=== PATIENT | male | born 1950 | race Caucasian/White ===

== ENCOUNTER 2016-06-29 05:22 | Day surgery (SDC) | payer OTHER, BC ==
[~2016-06-29] VITALS: Ht 172.7 cm; Wt 118.1 kg
[~2016-06-29 05:22] MED LIST: ASPIR-LOW81 MG PO; GLIPIZIDE XL5 MG PO; HEMOCYTE324 MG PO; HUMULIN N100 UNIT/2 SC; LATANOPROST2.5 ML BOTH EYES; LEVOTHYROXINE137 MCG PO; LOSARTAN POTASS50 MG PO
[2016-06-29] MEDS ORDERED: NOVOLOG 10100 UNITS/ SC (06:08)
[2016-06-29 06:16] VITALS: BP 142/85
[2016-06-29 06:30] LABS: POINT-OF-CARE METER ID UU14174212
[2016-06-29] MEDS ORDERED: NORCO 5/3251 TABLET PO (08:32)
[2016-06-29 11:13] VITALS: BP 162/75
== END 2016-06-29 12:15 | disposition home or self-care (01) ==
LOC: SDC 05:22
PROVIDERS: Surgery
PROC: 0FT44ZZ Resection of Gallbladder, Percutaneous Endoscopic Approach (ICD-10-PCS; principal; 2016-06-29)
DX: K80.10 Calculus of gallbladder with chronic cholecystitis without obstruction (principal); I10 Essential (primary) hypertension; E78.5 Hyperlipidemia, unspecified; Z95.2 Presence of prosthetic heart valve; Z79.82 Long term (current) use of aspirin; E11.9 Type 2 diabetes mellitus without complications; Z79.4 Long term (current) use of insulin
CPT/HCPCS: 82948; 88304; C1769; J0330; J0360; J1100; J1170; J1885; J2405; J2710; J3010

== ENCOUNTER 2017-10-13 09:56 | Day surgery (SDC) | payer OTHER, BC ==
[~2017-10-13] VITALS: Ht 172.7 cm; Wt 118.0 kg
[~2017-10-13 09:56] MED LIST changes: +NITROSTAT0.4 MG SL; +NORCO 5/3251 TABLET PO; +NOVOLOG 10100 UNITS/ SC; +SIMVASTATIN20 MG PO
== END 2017-10-13 17:05 | disposition home or self-care (01) ==
LOC: CATH 09:56
PROVIDERS: Internal Medicine Cardiovascular Disease
DX: I25.10 Atherosclerotic heart disease of native coronary artery without angina pectoris (principal); E66.01 Morbid (severe) obesity due to excess calories; Z68.38 Body mass index [BMI] 38.0-38.9, adult; I10 Essential (primary) hypertension; E78.5 Hyperlipidemia, unspecified; E11.9 Type 2 diabetes mellitus without complications; Z79.82 Long term (current) use of aspirin; Z79.4 Long term (current) use of insulin; Z95.3 Presence of xenogenic heart valve
CPT/HCPCS: 82948; 93005; C1769; C1887; J1644; J2250; J3010; J7040